=== PATIENT | female | born 1985 | race Caucasian/White ===

== ENCOUNTER 2019-01-29 00:48 | Emergency (ER) | payer OTHER ==
[2019-01-29 00:56] VITALS: BP 113/75; PULSE 76; RESP 18; TEMP 98.2
[2019-01-29] MEDS ORDERED: HYDROcodone/APAP 7.5-325MG 1 EACH TAB PO ONE (01:14)
--- NOTE | 2019-01-29 01:57 | ED ---
General Adult HPI - General Chief complaint: Dental/Oral Stated complaint: Tooth ache Time Seen by Provider: 01/29/19 01:01 Source: patient, RN notes reviewed, old records reviewed Mode of arrival: ambulatory Limitations: no limitations - History of Present Illness Initial comments: 33-year-old female patient who presents with history of tubal ligation presents to ED for dental pain. Patient reports that she has pain in her left lower jaw. Patient denies any other complaints. Patient does report that she has a history of poor dentition. Systemic: Pt denies fatigue, myalgia, fever/chills, rash. Pt denies weakness, night sweats, weight loss. Neuro: Pt denies headache, visual disturbances, syncope or pre-syncope. HEENT: Pt denies ocular discharge or irritation, otalgia, rhinorrhea, pharyngitis or notable lymphadenopathy. Cardiopulmonary: Pt denies chest pain, SOB, heart palpitations, dyspnea on exertion. Abdominal/GI: Pt denies abdominal pain, n/v/d. : Pt denies dysuria, burning w/ urination, frequency/urgency. Denies new onset urinary or bowel incontinence. MSK: Pt denies myalgia, loss of strength or function in extremities. Neuro: Pt denies new onset weakness, paresthesias. - Related Data Home Medications Medication Instructions Recorded Confirmed Gabapentin [Neurontin] 100 mg PO TID 04/14/15 04/14/15 HYDROcodone/APAP 10-325MG [[place] 1 each PO Q4HR PRN 04/14/15 04/14/15 10] Previous Rx's Medication Instructions Recorded Hydrocodone/Acetaminophen [[place] 2 each PO Q6HR PRN #20 tab 04/14/15 5-325] Clindamycin [Cleocin] 450 mg PO Q8HR 7 Days #21 capsule 01/29/19 Allergies Allergy/AdvReac Type Severity Reaction Status Date / Time Penicillins Allergy Unknown Verified 01/29/19 00:56 Review of Systems ROS Statement: Those systems with pertinent positive or pertinent negative responses have been documented in the HPI. ROS Other: All systems not noted in ROS Statement are negative. Past Medical History Past Medical History: Asthma Additional Past Medical History / Comment(s): fibramyglia, neuropathy History of Any Multi-Drug Resistant Organisms: None Reported Past Surgical History: Tubal Ligation Past Psychological History: Anxiety, Bipolar, Depression Smoking Status: Current every day smoker Past Alcohol Use History: None Reported Past Drug Use History: Marijuana General Exam - General Exam Comments Initial Comments: Constitutional: NAD, AOX3, Pt has pleasant affect. HEENT: NC/AT, trachea midline, neck supple, no lymphadenopathy. Posterior pharynx non erythematous, without exudates. External ears appear normal, without discharge. Mucous membranes moist. Eyes PERRLA, EOM intact. There is no scleral icterus. No pallor noted. Dental exam revealed poor dentition. Mild amount of erythema at 20th tooth location. No drainable abscess. Cardiopulmonary: RRR, no murmurs, rubs or gallops, no JVD noted. Lungs CTAB in anterior and posterior conteh. No peripheral edema. Abdominal exam: Abdomen soft and non-distended. Abdomen non-tender to palpation in all 4 quadrants. Bowel sounds active in LLQ. No hepatosplenomegaly. No ecchymosis Neuro: CN II-XII grossly intact. No nuchal rigidity. MSK: No posterior calf tenderness bilaterally, homans sign negative bilaterally. Posterior tibialis and radial pulse +2 bilaterally. Sensation intact in upper and lower extremities. Full active ROM in upper and lower extremities, 5/5 stregnth. Limitations: no limitations Course Vital Signs 01/29/19 00:53 Temperature 98.2 F Pulse Rate 76 Respiratory 18 Rate Blood Pressure 113/75 O2 Sat by Pulse 98 Oximetry Medical Decision Making - Medical Decision Making 33-year-old female patient who presents with history of tubal ligation presents to ED for dental pain. Patient reports that she has pain in her left lower jaw. Patient denies any other complaints. Patient does report that she has a history of poor dentition. Pt VSS, afebrile. Physical exam displayed: Dental exam revealed poor dentition. Mild amount of erythema at 20th tooth location. No drainable abscess. Patient has ALLERGY to penicillins. Patient will be discharged to clindamycin. Patient states that she cannot be due to tubal ligation. Patient will follow-up with dentist as soon as possible as well as primary care provider. Pt states that she is not driving home. Case d iscussed with Dr. Soto. Disposition Clinical Impression: Pain, dental Disposition: HOME SELF-CARE Condition: Stable Instructions (If sedation given, give patient instructions): Toothache (ED) Additional Instructions: Patient to adhere to previously discussed treatment plan and will take medication(s) as directed. Patient to follow up with PCP in 1-2 days. Patient to return to ED if symptoms do not improve. Take medication as directed. Follow-up with primary care provider in 1-2 days. Follow-up with dentist as soon as possible. Prescriptions: Clindamycin [Cleocin] 450 mg PO Q8HR 7 Days #21 capsule Is patient prescribed a controlled substance at d/c from ED?: No Referrals: Cherrie Araya MD [Primary Care Provider] - 1-2 days
== END 2019-01-29 02:00 | disposition home or self-care (01) ==
LOC: EC 00:48
DX: K08.89 Other specified disorders of teeth and supporting structures (principal); R68.84 Jaw pain; M79.7 Fibromyalgia; G62.9 Polyneuropathy, unspecified; F41.9 Anxiety disorder, unspecified; F17.200 Nicotine dependence, unspecified, uncomplicated; Z88.0 Allergy status to penicillin; Z79.899 Other long term (current) drug therapy
CPT/HCPCS: 99283